=== PATIENT | female | born 1990 | race Caucasian/White ===

== ENCOUNTER 2023-12-16 15:54 | Inpatient (IN) | payer BC, OTHER ==
[~2023-12-16] VITALS: Ht 182.9 cm; Wt 76.2 kg
[2023-12-16] VITALS (7 sets, daily range): BP systolic 103–129; BP diastolic 58–69; PULSE 113–129; RESP 21–32; TEMP 97.2–97.7; O2SAT 97–99
[2023-12-16 16:41] LABS: Basophils # (auto) 0 10 ^3/uL (0-0.2); Basophils % (auto) 0.2 % (0.0-2.0); Eosinophils # (auto) 0 10 ^3/uL (0-0.8); Hematocrit 41.7 % (36.0-46.0); Hemoglobin 13.4 g/dL (12.2-16.2); Lymphocytes # (auto) 2.5 10 ^3/uL (0.4-5.4); Mean Corpuscular Hemoglobin 32.5 pg (28.0-32.0); Mean Corpuscular Volume 101.6 fL (80.0-100.0); Monocytes # (auto) 0.4 10 ^3/uL (0-1.3); Monocytes % (auto) 2.4 % (0.0-12.0); Neutrophils # (auto) 13.5 10 ^3/uL (1.6-8.6); Neutrophils % (auto) 82.4 % (37.0-80.0); Nucleated Red Blood Cells % 0.2 %; Platelet Count (auto) 231 10^3/uL (140-450); Red Blood Cells 4.11 10^6/uL (4.0-5.20); Red Cell Distribution Width 12.6 % (11.8-14.3); White Blood Cell 16.4 10^3/uL (4.4-10.8)
[2023-12-16 17:00] LABS: Base Excess -19.8 mmol/L (-2.0-3.0)
[2023-12-16] MEDS: MIDAZOLAM HCL 2MG/2ML 2ml VIAL (1mg/ml) IV ONE (17:00)
[2023-12-16 17:05] LABS: INR 1.06 (0.9-1.15); Partial Thromboplastin Time 30.7 SEC (24.5-34.5); Prothrombin Time 11.2 sec (9.3-11.8)
[2023-12-16 17:09] LABS: Alanine Aminotransferase 205 U/L (7-40); Alkaline Phosphatase 48 U/L (46-116); Anion Gap 30 (5-15); Aspartate Aminotransferase 157 U/L (13-40); BUN/Creatinine Ratio 11.4 (10.0-20.0); Blood Urea Nitrogen 13 mg/dL (9-23); Carbon Dioxide 11 mmol/L (20-31); Chloride 101 mmol/L (98-107); Glucose 369 mg/dL (74-106); Magnesium 2.6 mg/dL (1.6-2.6); Potassium 3.5 mmol/L (3.5-5.1); Sodium 142 mmol/L (136-145)
[2023-12-16 17:10] LABS: Albumin 4.3 g/dL (3.2-4.8); Creatine Kinase IFCC 123 U/L (34-145); Total Protein 6.3 g/dL (5.7-8.2)
[2023-12-16] MEDS: MIDAZOLAM DRIP 50 mg/50mL 50 ML IV ONE ×3 (17:15→19:44)
[2023-12-16] MEDS ORDERED: MIDAZOLAM DRIP 50 mg/50mL 50 ML IV SCH (17:15)
[2023-12-16 17:16] LABS: Urine Bacteria FEW /hpf (None Seen); Urine Blood Negative /uL (Negative); Urine Clarity Turbid (Clear); Urine Color Yellow (Yellow); Urine Mucus FEW (None Seen); Urine Protein, UAD 3+ (Negative); Urine Specific Gravity 1.031 (1.001-1.035); Urine Urobilinogen Normal (Negative); Urine WBC 1 /hpf (0 - 5); Urine pH 8.5 (5.0-9.0)
[2023-12-16 17:17] LABS: Lactic Acid w/Reflex 17.9 mmol/L (0.4-2.0)
[2023-12-16 17:23] LABS: Amphetamine Screen, Urine Neg (NEGATIVE); Barbiturate Scree,Urine Neg (NEGATIVE); Benzodiazephine Screen, Urine Neg (NEGATIVE); Cannabinoid Screen, Urine Pos (NEGATIVE); Cocaine Screen, Urine Neg (NEGATIVE); Opiate Scree,Urine Neg (NEGATIVE); Phencyclidine Screen, Urine Neg (NEGATIVE)
[2023-12-16] MEDS: HEPARIN SODIUM (PORCINE) 5000 UNITS/ML 1ML VIAL ONE (17:27)
[2023-12-16] MEDS: HEPARIN DRIP/D5W 100UNITS/ML 250 ML IV ONE (17:28)
[2023-12-16] MEDS ORDERED: HEPARIN DRIP/D5W 100UNITS/ML 250 ML IV SCH (17:30)
[2023-12-16] MEDS ORDERED: ONDANSETRON HCL 4 MG/2 ML VIAL IV PRN (17:30)
[2023-12-16] MEDS ORDERED: NITROGLYCERIN 0.4 MG SL TAB SL PRN (17:30)
[2023-12-16] MEDS ORDERED: MORPHINE SULFATE INJ 2 MG/ml SYRG IV PRN (17:30)
[2023-12-16 17:32] LABS: Triglycerides 97 mg/dL (< 150)
[2023-12-16] MEDS: HEPARIN SODIUM (PORCINE) 5000 UNITS/ML 1ML VIAL IV ONE (17:32)
[2023-12-16 17:33] LABS: LDL Cholesterol 87 mg/dL (< 100)
[2023-12-16] MEDS: PROPOFOL 100 ML IV SCH (17:33)
[2023-12-16] MEDS: PROPOFOL 100 ML IV ONE (17:33)
[2023-12-16 17:34] LABS: Cholesterol 139 mg/dL (< 200); HDL Cholesterol 48 mg/dL (40-59)
[2023-12-16] MEDS: PHENYLEPHRINE IV 250 ML IV ONE (17:45)
[2023-12-16] MEDS: InsuLIN REG 1unit/0.01ml Soln (100units/ml) IV ONE (17:51)
[2023-12-16] MEDS: SODIUM BICARB 8.4% 50Meq/50ml SYR Vial IV ONE ×2 (17:51→23:54)
[2023-12-16 18:20] LABS: Hemoglobin 13.5 g/dL (12.2-16.2); Mean Corpuscular Volume 98.4 fL (80.0-100.0)
[2023-12-16 18:22] LABS: Hematocrit 40.9 % (36.0-46.0); Mean Corpuscular Hemoglobin 32.5 pg (28.0-32.0); Mean Corpuscular Hgb Conc. 33.1 g/dL (32.0-36.0); Platelet Count (auto) 318 10^3/uL (140-450); Red Blood Cells 4.15 10^6/uL (4.0-5.20); Red Cell Distribution Width 12.2 % (11.8-14.3)
[2023-12-16 18:26] LABS: Alanine Aminotransferase 238 U/L (7-40); Albumin 4.5 g/dL (3.2-4.8); Alkaline Phosphatase 60 U/L (46-116); Anion Gap 18 (5-15); Aspartate Aminotransferase 200 U/L (13-40); BUN/Creatinine Ratio 12.9 (10.0-20.0); Bilirubin, Total 0.9 mg/dL (0.2-1.0); Blood Urea Nitrogen 13 mg/dL (9-23); Calcium 8.3 mg/dL (8.7-10.4); Carbon Dioxide 11 mmol/L (20-31); Chloride 110 mmol/L (98-107); Glucose 267 mg/dL (74-106); Potassium 4.1 mmol/L (3.5-5.1); Sodium 139 mmol/L (136-145); Total Protein 6.6 g/dL (5.7-8.2)
[2023-12-16 18:28] LABS: Acetaminophen < 2.0 UG/ML (10.0-20.0)
[2023-12-16 18:29] LABS: Salicylate < 3.0 mg/dL (-30)
[2023-12-16 18:30] LABS: White Blood Cell 39.9 10^3/uL (4.4-10.8)
[2023-12-16] MEDS ORDERED: DEXTROSE (50%) 50ML SYRG IV PRN (18:30)
[2023-12-16] MEDS ORDERED: fentaNYL Drip 2500mCg/250mlNS 250 ML IV SCH (18:30)
[2023-12-16 18:32] LABS: Basophils % (manual) 0 (0.0-2.0); Blast Cells 0; Eosinophils % (manual) 0 (0-7); Metamyelocytes % 0; Myelocytes % 0; Promyelocytes % 0; Reactive Lymphocytes 0
[2023-12-16] MEDS: IOHEXOL 350 MG/ML 100ML IJ ONE (18:40)
[2023-12-16] MEDS: fentaNYL Drip 2500mCg/250mlNS 250 ML IV SCH (19:00)
[2023-12-16 19:14] LABS: Band Neutrophils % (manual) 10; Lymphocytes % (manual) 4 (10.0-50.0); Monocytes % (manual) 2 (0-12); Platelet Estimate Adequate; RBC Morphology Normal
[2023-12-16] MEDS: SODIUM CHLORIDE 0.9% 1,000 ML IV ONE (19:30)
[2023-12-16] MEDS: MIDAZOLAM DRIP 50 mg/50mL 50 ML IV SCH (19:30)
[2023-12-16] MEDS: PIPERACILLIN-TAZOB 3.375GM 100 ML IV STA (19:50)
[2023-12-16] MEDS: ACCU-CHEK COMFORT CURVE STRIP VI SCH (20:00)
[2023-12-16] MEDS: InsuLIN REG 1unit/0.01ml Soln (100units/ml) SC SCH (20:00)
[2023-12-16] MEDS: IPRATROPIUM BROM 0.5 MG/2.5ML INH SOL NEB SCH (21:44)
[2023-12-16] MEDS: ALBUTEROL SULF 2.5 MG/0.5ML(0.5%) NEB SOLN NEB PRN (21:44)
[2023-12-16 22:08] LABS: Hematocrit 38.8 % (36.0-46.0); Hemoglobin 13.4 g/dL (12.2-16.2)
[2023-12-16 22:21] LABS: Base Excess -9.2 mmol/L (-2.0-3.0)
[2023-12-16] MEDS: SODIUM CHLORIDE 0.9% 1,000 ML IV SCH (23:50)
[2023-12-17] VITALS (113 sets, daily range): BP systolic 97–169; BP diastolic 58–107; PULSE 99–142; RESP 18–32; TEMP 97.5–100; O2SAT 97–100
[2023-12-17] MEDS: HEPARIN SODIUM (PORCINE) 5000 UNITS/ML 1ML VIAL SC SCH (05:43)
[2023-12-17 08:12] LABS: Base Excess -5.5 mmol/L (-2.0-3.0)
[2023-12-17] MEDS ORDERED: VANCOMYCIN PER PHARMACY 0 MG IV SCH ×2 (08:30→09:45)
[2023-12-17] MEDS ORDERED: HEPARIN DRIP/D5W 100UNITS/ML 250 ML IV SCH (09:30)
[2023-12-17 09:43] LABS: Basophils # (auto) 0 10 ^3/uL (0-0.2); Eosinophils # (auto) 0 10 ^3/uL (0-0.8); Hematocrit 37.7 % (36.0-46.0); Hemoglobin 12.5 g/dL (12.2-16.2); Lymphocytes # (auto) 0.9 10 ^3/uL (0.4-5.4); Mean Corpuscular Hemoglobin 32.1 pg (28.0-32.0); Mean Corpuscular Hgb Conc. 33.2 g/dL (32.0-36.0); Mean Corpuscular Volume 96.8 fL (80.0-100.0); Monocytes # (auto) 0.7 10 ^3/uL (0-1.3); Neutrophils # (auto) 22.2 10 ^3/uL (1.6-8.6); Nucleated Red Blood Cells % 0.1 %; Platelet Count (auto) 190 10^3/uL (140-450); Red Cell Distribution Width 12.2 % (11.8-14.3); White Blood Cell 23.9 10^3/uL (4.4-10.8)
[2023-12-17 09:51] LABS: INR 1.03 (0.9-1.15); Partial Thromboplastin Time 25.2 SEC (24.5-34.5); Prothrombin Time 10.9 sec (9.3-11.8)
[2023-12-17 09:53] LABS: Alanine Aminotransferase 176 U/L (7-40); Albumin 3.7 g/dL (3.2-4.8); Alkaline Phosphatase 46 U/L (46-116); Anion Gap 8 (5-15); Aspartate Aminotransferase 193 U/L (13-40); BUN/Creatinine Ratio 21.2 (10.0-20.0); Bilirubin, Total 0.4 mg/dL (0.2-1.0); Blood Urea Nitrogen 11 mg/dL (9-23); Carbon Dioxide 20 mmol/L (20-31); Chloride 115 mmol/L (98-107); Glucose 118 mg/dL (74-106); Potassium 3.9 mmol/L (3.5-5.1); Sodium 143 mmol/L (136-145); Total Protein 5.5 g/dL (5.7-8.2)
[2023-12-17] MEDS ORDERED: VANCOMYCIN 1,250 MG in SODIUM CHL 0.9% 250 ML IV SCH (10:00)
[2023-12-17] MEDS ORDERED: VANCOMYCIN 1GM/200ML PREMIX 250 ML IV SCH (10:00)
[2023-12-17] MEDS ORDERED: VANCOMYCIN 1,250 MG in D5W 5% 250 ML IV SCH (10:00)
[2023-12-17] MEDS: HEPARIN DRIP/D5W 100UNITS/ML 250 ML IV SCH ×2 (10:25→18:01)
[2023-12-17] MEDS ORDERED: VANCOMYCIN 1,000 MG in D5W 5% 250 ML IV SCH (11:00)
[2023-12-17] MEDS: SODIUM CHLORIDE 0.9% 1,000 ML IV SCH (11:57)
[2023-12-17] MEDS: cefTRIAXone 2GM/50ML D5W 50 ML IV SCH (12:14)
[2023-12-17] MEDS: FREE WATER GT SCH (12:42)
[2023-12-17] MEDS ORDERED: MAGNESIUM SULFATE 1GM/100ML 100 ML IV ONE (15:00)
[2023-12-17] MEDS: METOPROLOL TARTRATE 1MG/1ML-5ML VIAL IV ONE ×2 (15:26→16:44)
[2023-12-17] MEDS: MAGNESIUM SULFATE 1GM/100ML 100 ML IV ONE (15:27)
[2023-12-17] MEDS ORDERED: ACETAMINOPHEN 650 mg PER 20.3 mL UD GT PRN (16:30)
[2023-12-17] MEDS: Jevity 1.2 Cal/Fiber 1 Liter GT SCH (16:45)
[2023-12-17 16:54] LABS: INR 1.05 (0.9-1.15); Partial Thromboplastin Time 39.8 SEC (24.5-34.5); Prothrombin Time 11.1 sec (9.3-11.8)
[2023-12-17 18:46] LABS: Chloride 113 mmol/L (98-107); Potassium 3.9 mmol/L (3.5-5.1); Sodium 141 mmol/L (136-145)
[2023-12-17 18:47] LABS: Anion Gap 9 (5-15); Calcium 9.2 mg/dL (8.7-10.4); Carbon Dioxide 19 mmol/L (20-31)
[2023-12-17 18:52] LABS: Glucose 121 mg/dL (74-106)
[2023-12-17 18:54] LABS: BUN/Creatinine Ratio 8.5 (10.0-20.0); Blood Urea Nitrogen < 5 mg/dL (9-23)
[2023-12-17] MEDS: IPRATROPIUM BROM 0.5 MG/2.5ML INH SOL NEB SCH (19:29)
[2023-12-17] MEDS: LEVALBUTEROL HCL 1.25 MG/3 ML NEB NEB SCH (19:29)
[2023-12-18] VITALS (117 sets, daily range): BP systolic 75–160; BP diastolic 41–113; PULSE 84–141; RESP 21–22; TEMP 96.8–99.1; O2SAT 95–100
[2023-12-18 01:12] LABS: INR 1.06 (0.9-1.15); Partial Thromboplastin Time 30.4 SEC (24.5-34.5); Prothrombin Time 11.2 sec (9.3-11.8)
[2023-12-18 04:53] LABS: Anion Gap 9 (5-15); Carbon Dioxide 20 mmol/L (20-31); Chloride 118 mmol/L (98-107); Potassium 4.1 mmol/L (3.5-5.1)
[2023-12-18 04:54] LABS: Calcium 9.5 mg/dL (8.7-10.4)
[2023-12-18 04:58] LABS: Glucose 115 mg/dL (74-106)
[2023-12-18 05:10] LABS: BUN/Creatinine Ratio 9.4 (10.0-20.0); Blood Urea Nitrogen < 5 mg/dL (9-23); Sodium 147 mmol/L (136-145)
[2023-12-18 05:36] LABS: Basophils # (auto) 0 10 ^3/uL (0-0.2); Eosinophils # (auto) 0 10 ^3/uL (0-0.8); Hematocrit 36.3 % (36.0-46.0); Hemoglobin 12.5 g/dL (12.2-16.2); Lymphocytes # (auto) 0.8 10 ^3/uL (0.4-5.4); Lymphocytes % (auto) 3.8 % (10.0-50.0); Mean Corpuscular Hemoglobin 33.2 pg (28.0-32.0); Mean Corpuscular Hgb Conc. 34.4 g/dL (32.0-36.0); Mean Corpuscular Volume 96.4 fL (80.0-100.0); Monocytes # (auto) 0.7 10 ^3/uL (0-1.3); Monocytes % (auto) 3.4 % (0.0-12.0); Neutrophils # (auto) 19.2 10 ^3/uL (1.6-8.6); Neutrophils % (auto) 92.8 % (37.0-80.0); Platelet Count (auto) 195 10^3/uL (140-450); Red Blood Cells 3.77 10^6/uL (4.0-5.20); Red Cell Distribution Width 12.1 % (11.8-14.3); White Blood Cell 20.7 10^3/uL (4.4-10.8)
[2023-12-18] MEDS: METOPROLOL TARTRATE 1MG/1ML-5ML VIAL IV PRN (05:59)
[2023-12-18 06:33] LABS: Base Excess -3.8 mmol/L (-2.0-3.0)
[2023-12-18 08:06] LABS: Free Thyroxine Index 1.5 (1.2-4.9); Thyroxine (T4) 5.7 ug/dL (4.5-12.0)
[2023-12-18] MEDS: LABETALOL INJECTION 250 MG in SODIUM CHL 0.9% 200 ML IV SCH (08:43)
[2023-12-18] MEDS: SODIUM CHLORIDE 0.9% 1,000 ML IV SCH (08:46)
[2023-12-18] MEDS: PANTOPRAZOLE 40 MG/10 ML VIAL INJ IV SCH (10:18)
[2023-12-18] MEDS ORDERED: VANCOMYCIN PER PHARMACY 0 MG IV SCH (13:15)
[2023-12-18 14:02] LABS: Urine Bacteria None Seen /hpf (None Seen)
[2023-12-18 14:24] LABS: Urine Blood 1+ /uL (Negative); Urine Clarity Clear (Clear); Urine Protein, UAD Negative (Negative); Urine Specific Gravity 1.005 (1.001-1.035); Urine Urobilinogen Normal (Negative); Urine WBC 2 /hpf (0 - 5)
[2023-12-18 14:25] LABS: Urine Color Light-Yellow (Yellow)
[2023-12-18] MEDS: VANCOMYCIN 1,000 MG in D5W 5% 250 ML IV SCH (14:34)
[2023-12-18] MEDS: PIPERACILLIN-TAZOB 3.375GM 100 ML IV SCH (17:21)
[2023-12-18] MEDS: Jevity 1.2 Cal/Fiber 1 Liter GT SCH (17:27)
[2023-12-18] MEDS ORDERED: LABETALOL INJECTION 250 MG in SODIUM CHL 0.9% 200 ML IV ONE (19:45)
[2023-12-18] MEDS: LABETALOL INJECTION 250 MG in SODIUM CHL 0.9% 200 ML IV ONE (21:42)
[2023-12-18] MEDS: HEPARIN SODIUM (PORCINE) 5000 UNITS/ML 1ML VIAL SC SCH (22:02)
[2023-12-19] VITALS (115 sets, daily range): BP systolic 70–155; BP diastolic 37–112; PULSE 83–110; RESP 21–24; TEMP 96.4–99; O2SAT 93–100
[2023-12-19] MEDS ORDERED: LABETALOL INJECTION 250 MG in SODIUM CHL 0.9% 200 ML IV SCH (00:45)
[2023-12-19] MEDS ORDERED: NOREPINEPHRINE 8 MG/250ML KIT 250 ML IV SCH ×3 (02:45→06:00)
[2023-12-19] MEDS: NOREPINEPHRINE 8 MG/250ML KIT 250 ML IV ONE (02:46)
[2023-12-19 04:29] LABS: Basophils # (auto) 0 10 ^3/uL (0-0.2); Basophils % (auto) 0.1 % (0.0-2.0); Eosinophils # (auto) 0 10 ^3/uL (0-0.8); Hematocrit 35.6 % (36.0-46.0); Lymphocytes # (auto) 0.9 10 ^3/uL (0.4-5.4); Lymphocytes % (auto) 5.8 % (10.0-50.0); Mean Corpuscular Hemoglobin 32.6 pg (28.0-32.0); Mean Corpuscular Hgb Conc. 33.7 g/dL (32.0-36.0); Mean Corpuscular Volume 96.7 fL (80.0-100.0); Monocytes # (auto) 0.5 10 ^3/uL (0-1.3); Monocytes % (auto) 3.6 % (0.0-12.0); Neutrophils # (auto) 13.7 10 ^3/uL (1.6-8.6); Neutrophils % (auto) 90.5 % (37.0-80.0); Platelet Count (auto) 183 10^3/uL (140-450); Red Blood Cells 3.68 10^6/uL (4.0-5.20); Red Cell Distribution Width 12.6 % (11.8-14.3); White Blood Cell 15.2 10^3/uL (4.4-10.8)
[2023-12-19 04:46] LABS: Potassium 3.5 mmol/L (3.5-5.1)
[2023-12-19 04:47] LABS: Anion Gap 9 (5-15); Carbon Dioxide 23 mmol/L (20-31)
[2023-12-19 04:48] LABS: Calcium 9.9 mg/dL (8.7-10.4)
[2023-12-19 04:52] LABS: Blood Urea Nitrogen 8 mg/dL (9-23); Glucose 120 mg/dL (74-106)
[2023-12-19 04:54] LABS: Chloride 128 mmol/L (98-107); Sodium 160 mmol/L (136-145)
[2023-12-19] MEDS: NOREPINEPHRINE 8 MG/250ML KIT 250 ML IV SCH ×2 (05:36→06:15)
[2023-12-19] MEDS: InsuLIN REG 1unit/0.01ml Soln (100units/ml) SC SCH (06:00)
[2023-12-19] MEDS: ACCU-CHEK COMFORT CURVE STRIP VI SCH (06:13)
[2023-12-19] MEDS: PANTOPRAZOLE 40 MG/10 ML VIAL INJ IV SCH (10:24)
[2023-12-19] MEDS ORDERED: VANCOMYCIN 1,250 MG in D5W 5% 250 ML IV SCH (10:30)
[2023-12-19] MEDS: VANCOMYCIN 1,250 MG in D5W 5% 250 ML IV SCH (11:00)
[2023-12-19] MEDS: D5W 5% 1,000 ML IV SCH (13:50)
[2023-12-19 14:44] LABS: Chloride 126 mmol/L (98-107); Potassium 3.2 mmol/L (3.5-5.1); Sodium 158 mmol/L (136-145)
[2023-12-19 14:45] LABS: Anion Gap 8 (5-15); Calcium 9.7 mg/dL (8.7-10.4); Carbon Dioxide 24 mmol/L (20-31)
[2023-12-19 14:50] LABS: BUN/Creatinine Ratio 12.7 (10.0-20.0); Blood Urea Nitrogen 10 mg/dL (9-23); Glucose 188 mg/dL (74-106)
[2023-12-19] MEDS: POTASSIUM CHL 20MEQ/100ML 100 ML IV SCH (19:29)
[2023-12-20] VITALS (113 sets, daily range): BP systolic 66–156; BP diastolic 32–106; PULSE 89–129; RESP 18–27; TEMP 96.3–99.9; O2SAT 91–99
[2023-12-20 04:14] LABS: Basophils # (auto) 0 10 ^3/uL (0-0.2); Basophils % (auto) 0.2 % (0.0-2.0); Eosinophils # (auto) 0 10 ^3/uL (0-0.8); Eosinophils % (auto) 0.1 % (0.0-7.0); Hematocrit 34.3 % (36.0-46.0); Hemoglobin 11.7 g/dL (12.2-16.2); Lymphocytes % (auto) 8.3 % (10.0-50.0); Mean Corpuscular Hemoglobin 33.1 pg (28.0-32.0); Mean Corpuscular Hgb Conc. 34.3 g/dL (32.0-36.0); Mean Corpuscular Volume 96.6 fL (80.0-100.0); Monocytes # (auto) 0.6 10 ^3/uL (0-1.3); Monocytes % (auto) 5.2 % (0.0-12.0); Neutrophils # (auto) 10.3 10 ^3/uL (1.6-8.6); Neutrophils % (auto) 86.2 % (37.0-80.0); Platelet Count (auto) 182 10^3/uL (140-450); Red Blood Cells 3.55 10^6/uL (4.0-5.20); Red Cell Distribution Width 12.9 % (11.8-14.3)
[2023-12-20 04:26] LABS: Anion Gap 11 (5-15); Carbon Dioxide 24 mmol/L (20-31); Chloride 134 mmol/L (98-107); Potassium 3.5 mmol/L (3.5-5.1)
[2023-12-20 04:28] LABS: Calcium 9.7 mg/dL (8.7-10.4)
[2023-12-20 04:32] LABS: Glucose 123 mg/dL (74-106)
[2023-12-20 04:33] LABS: BUN/Creatinine Ratio 9.5 (10.0-20.0); Blood Urea Nitrogen 8 mg/dL (9-23)
[2023-12-20 04:43] LABS: Sodium 169 mmol/L (136-145)
[2023-12-20] MEDS: FREE WATER GT ONE (05:32)
[2023-12-20] MEDS: D5W 5% 1,000 ML IV SCH ×2 (07:00→16:15)
[2023-12-20 07:14] LABS: Anion Gap 11 (5-15); Carbon Dioxide 24 mmol/L (20-31); Chloride 135 mmol/L (98-107); Potassium 3.5 mmol/L (3.5-5.1)
[2023-12-20 07:16] LABS: Calcium 9.9 mg/dL (8.7-10.4)
[2023-12-20 07:20] LABS: BUN/Creatinine Ratio 9.5 (10.0-20.0); Blood Urea Nitrogen 8 mg/dL (9-23); Glucose 125 mg/dL (74-106)
[2023-12-20 07:23] LABS: Sodium 170 mmol/L (136-145)
[2023-12-20 08:24] LABS: Base Excess -2.4 mmol/L (-2.0-3.0)
[2023-12-20] MEDS: DESMOPRESSIN ACET 4 MCG/1 ML AMPULE IV SCH (09:52)
[2023-12-20] MEDS: FREE WATER GT SCH ×2 (09:55→21:40)
[2023-12-20] MEDS: D5W 5% 500 ML IV ONE (10:29)
[2023-12-20 12:40] LABS: Chloride 130 mmol/L (98-107); Potassium 3.3 mmol/L (3.5-5.1)
[2023-12-20 12:41] LABS: Anion Gap 8 (5-15); Carbon Dioxide 24 mmol/L (20-31)
[2023-12-20 12:42] LABS: Calcium 9.2 mg/dL (8.7-10.4)
[2023-12-20 12:46] LABS: BUN/Creatinine Ratio 9.4 (10.0-20.0); Blood Urea Nitrogen 10 mg/dL (9-23); Glucose 224 mg/dL (74-106)
[2023-12-20 12:48] LABS: Sodium 162 mmol/L (136-145)
[2023-12-20] MEDS: POTASSIUM CHL 20MEQ/100ML 100 ML IV SCH (13:43)
[2023-12-20 18:07] LABS: Chloride 126 mmol/L (98-107); Potassium 3.9 mmol/L (3.5-5.1)
[2023-12-20 18:08] LABS: Anion Gap 6 (5-15); Calcium 9.3 mg/dL (8.7-10.4); Carbon Dioxide 24 mmol/L (20-31)
[2023-12-20 18:12] LABS: Sodium 156 mmol/L (136-145)
[2023-12-20 18:13] LABS: BUN/Creatinine Ratio 11.1 (10.0-20.0); Blood Urea Nitrogen 14 mg/dL (9-23); Glucose 114 mg/dL (74-106)
[2023-12-20] MEDS: SOD CHL 0.45% 1,000 ML IV SCH (18:40)
[2023-12-21] VITALS (117 sets, daily range): BP systolic 64–192; BP diastolic 35–112; PULSE 81–132; RESP 21–26; TEMP 96.1–99.7; O2SAT 88–100
[2023-12-21 01:28] LABS: Chloride 124 mmol/L (98-107); Potassium 3.3 mmol/L (3.5-5.1); Sodium 154 mmol/L (136-145)
[2023-12-21 01:29] LABS: Anion Gap 8 (5-15); Carbon Dioxide 22 mmol/L (20-31)
[2023-12-21 01:30] LABS: Calcium 9.1 mg/dL (8.7-10.4)
[2023-12-21 01:34] LABS: Glucose 91 mg/dL (74-106)
[2023-12-21 01:35] LABS: BUN/Creatinine Ratio 8.6 (10.0-20.0); Blood Urea Nitrogen 17 mg/dL (9-23)
[2023-12-21] MEDS: POTASSIUM CHL 20MEQ/100ML 100 ML IV ONE (02:40)
[2023-12-21] MEDS: ETOMIDATE (2MG/ML) 20ML VIAL IV ONE (03:28)
[2023-12-21] MEDS: SUCCINYLCHOLINE CHLORIDE 20 MG/ML 10ML VIAL IV ONE (03:29)
[2023-12-21 07:33] LABS: Chloride 123 mmol/L (98-107); Potassium 3.9 mmol/L (3.5-5.1); Sodium 152 mmol/L (136-145)
[2023-12-21 07:34] LABS: Anion Gap 8 (5-15); Calcium 8.9 mg/dL (8.7-10.4); Carbon Dioxide 21 mmol/L (20-31)
[2023-12-21 07:38] LABS: Base Excess -6.6 mmol/L (-2.0-3.0)
[2023-12-21 07:39] LABS: BUN/Creatinine Ratio 8.2 (10.0-20.0); Blood Urea Nitrogen 20 mg/dL (9-23); Glucose 76 mg/dL (74-106)
[2023-12-21] MEDS: SOD CHL 0.45% 1,000 ML IV SCH (08:00)
[2023-12-21] MEDS: PHENYLEPHRINE IV 250 ML IV ONE (08:05)
[2023-12-21] MEDS: SODIUM BICARB 8.4% 50Meq/50ml SYR Vial IV ONE (09:51)
[2023-12-21] MEDS: ENOXAPARIN SOD 40 MG/0.4 ML SYRINGE SC SCH (09:51)
[2023-12-21 10:02] LABS: Basophils # (auto) 0 10 ^3/uL (0-0.2); Basophils % (auto) 0.1 % (0.0-2.0); Eosinophils # (auto) 0.3 10 ^3/uL (0-0.8); Eosinophils % (auto) 2.6 % (0.0-7.0); Hematocrit 33.1 % (36.0-46.0); Hemoglobin 11.2 g/dL (12.2-16.2); Lymphocytes # (auto) 1.5 10 ^3/uL (0.4-5.4); Lymphocytes % (auto) 13.3 % (10.0-50.0); Mean Corpuscular Hemoglobin 33.4 pg (28.0-32.0); Mean Corpuscular Hgb Conc. 33.7 g/dL (32.0-36.0); Mean Corpuscular Volume 99.1 fL (80.0-100.0); Monocytes # (auto) 0.5 10 ^3/uL (0-1.3); Monocytes % (auto) 4.4 % (0.0-12.0); Neutrophils # (auto) 9.1 10 ^3/uL (1.6-8.6); Neutrophils % (auto) 79.6 % (37.0-80.0); Nucleated Red Blood Cells % 0.1 %; Platelet Count (auto) 132 10^3/uL (140-450); Red Blood Cells 3.34 10^6/uL (4.0-5.20); Red Cell Distribution Width 13.1 % (11.8-14.3); White Blood Cell 11.4 10^3/uL (4.4-10.8)
[2023-12-21] MEDS: PHENYLEPHRINE IV 250 ML IV SCH (10:30)
[2023-12-21 12:05] LABS: Chloride 121 mmol/L (98-107); Potassium 4.2 mmol/L (3.5-5.1); Sodium 153 mmol/L (136-145)
[2023-12-21 12:06] LABS: Anion Gap 8 (5-15); Calcium 9.1 mg/dL (8.7-10.4); Carbon Dioxide 24 mmol/L (20-31)
[2023-12-21 12:11] LABS: BUN/Creatinine Ratio 8.7 (10.0-20.0); Blood Urea Nitrogen 24 mg/dL (9-23); Glucose 71 mg/dL (74-106)
[2023-12-21] MEDS: VASOPRESSIN 20 UNITS in SODIUM CHL 0.9% 99 ML IV SCH (13:15)
[2023-12-21] MEDS: DEXTROSE (50%) 50ML SYRG IV PRN (17:38)
[2023-12-21 18:16] LABS: Chloride 121 mmol/L (98-107); Potassium 4.1 mmol/L (3.5-5.1); Sodium 153 mmol/L (136-145)
[2023-12-21 18:17] LABS: Anion Gap 11 (5-15); Carbon Dioxide 21 mmol/L (20-31)
[2023-12-21 18:18] LABS: Calcium 8.8 mg/dL (8.7-10.4)
[2023-12-21 18:22] LABS: Glucose 60 mg/dL (74-106)
[2023-12-21 18:23] LABS: BUN/Creatinine Ratio 8.4 (10.0-20.0); Blood Urea Nitrogen 27 mg/dL (9-23)
[2023-12-22] VITALS (106 sets, daily range): BP systolic 93–128; BP diastolic 51–87; PULSE 83–121; RESP 0–26; TEMP 97.7–99.1; O2SAT 23–99
[2023-12-22 00:53] LABS: Chloride 123 mmol/L (98-107); Potassium 5.2 mmol/L (3.5-5.1); Sodium 150 mmol/L (136-145)
[2023-12-22 00:54] LABS: Anion Gap 9 (5-15); Calcium 8.4 mg/dL (8.7-10.4); Carbon Dioxide 18 mmol/L (20-31)
[2023-12-22 00:59] LABS: Glucose 75 mg/dL (74-106)
[2023-12-22 01:00] LABS: BUN/Creatinine Ratio 6.8 (10.0-20.0); Blood Urea Nitrogen 23 mg/dL (9-23)
[2023-12-22] MEDS ORDERED: SODIUM ZIRCONIUM CYCL 10 GM PAK GT ONE (02:45)
[2023-12-22] MEDS: SODIUM ZIRCONIUM CYCL 10 GM PAK GT ONE (02:52)
[2023-12-22 07:18] LABS: Chloride 120 mmol/L (98-107); Potassium 4.5 mmol/L (3.5-5.1); Sodium 151 mmol/L (136-145)
[2023-12-22 07:19] LABS: Anion Gap 11 (5-15); Calcium 8.6 mg/dL (8.7-10.4); Carbon Dioxide 20 mmol/L (20-31)
[2023-12-22 07:24] LABS: Glucose 73 mg/dL (74-106)
[2023-12-22 07:25] LABS: Blood Urea Nitrogen 34 mg/dL (9-23)
[2023-12-22 08:15] LABS: Base Excess -11.4 mmol/L (-2.0-3.0)
[2023-12-22] MEDS: SODIUM BICARB 50mEq/50ml Vial 100 ML in D5W 5% 1,000 ML IV SCH (09:59)
[2023-12-22] MEDS: FREE WATER GT SCH (11:17)
[2023-12-22 14:42] LABS: Chloride 122 mmol/L (98-107); Potassium 4.1 mmol/L (3.5-5.1); Sodium 153 mmol/L (136-145)
[2023-12-22 14:43] LABS: Anion Gap 10 (5-15); Carbon Dioxide 21 mmol/L (20-31)
[2023-12-22 14:44] LABS: Calcium 8.5 mg/dL (8.7-10.4)
[2023-12-22 14:48] LABS: BUN/Creatinine Ratio 10.4 (10.0-20.0); Blood Urea Nitrogen 35 mg/dL (9-23); Glucose 101 mg/dL (74-106)
[2023-12-22] MEDS ORDERED: LORazepam 2MG/ML-1ML VIAL IV PRN (15:00)
[2023-12-22] MEDS: MORPHINE SULFATE INJ 2 MG/ml SYRG IV PRN (21:30)
[2023-12-23] MEDS ORDERED: ENOXAPARIN SOD 30 MG/0.3 ML SYRINGE SC SCH (10:00)
== END 2023-12-22 21:59 | DRG 831 ==
LOC: ER 15:54 → EDBD 15:54 → TELE 17:27 → ICU WEST 22:58
PROVIDERS: ADMIT Registered Nurse General Practice; ATTEND Nurse Practitioner Acute Care
PROC: 5A12012 Performance of Cardiac Output, Single, Manual (ICD-10-PCS; principal; 2023-12-16)
PROC: 0BH18EZ Insertion of Endotracheal Airway into Trachea, Via Natural or Artificial Opening Endoscopic (ICD-10-PCS; 2023-12-16)
PROC: 5A1955Z Respiratory Ventilation, Greater than 96 Consecutive Hours (ICD-10-PCS; 2023-12-16)
PROC: 02HV33Z Insertion of Infusion Device into Superior Vena Cava, Percutaneous Approach (ICD-10-PCS; 2023-12-19)
PROC: B548ZZA Ultrasonography of Superior Vena Cava, Guidance (ICD-10-PCS; 2023-12-19)
DX: O99.411 Diseases of the circulatory system complicating pregnancy, first trimester (principal); A41.9 Sepsis, unspecified organism; J96.01 Acute respiratory failure with hypoxia; G93.41 Metabolic encephalopathy; I21.A1 Myocardial infarction type 2; G93.6 Cerebral edema; O88.211 Thromboembolism in pregnancy, first trimester; I26.99 Other pulmonary embolism without acute cor pulmonale; O23.41 Unspecified infection of urinary tract in pregnancy, first trimester; O26.831 Pregnancy related renal disease, first trimester; O16.1 Unspecified maternal hypertension, first trimester; G93.1 Anoxic brain damage, not elsewhere classified; Z99.11 Dependence on respirator [ventilator] status; N17.9 Acute kidney failure, unspecified; O99.321 Drug use complicating pregnancy, first trimester; Z16.24 Resistance to multiple antibiotics; O98.811 Other maternal infectious and parasitic diseases complicating pregnancy, first trimester; F12.10 Cannabis abuse, uncomplicated; O99.351 Diseases of the nervous system complicating pregnancy, first trimester; I46.9 Cardiac arrest, cause unspecified; R56.9 Unspecified convulsions; R74.01 Elevation of levels of liver transaminase levels; I50.810 Right heart failure, unspecified; I48.91 Unspecified atrial fibrillation; O99.511 Diseases of the respiratory system complicating pregnancy, first trimester; F17.200 Nicotine dependence, unspecified, uncomplicated; O21.1 Hyperemesis gravidarum with metabolic disturbance; O99.331 Smoking (tobacco) complicating pregnancy, first trimester; F41.9 Anxiety disorder, unspecified; O99.281 Endocrine, nutritional and metabolic diseases complicating pregnancy, first trimester; I11.0 Hypertensive heart disease with heart failure; O99.341 Other mental disorders complicating pregnancy, first trimester; F32.A Depression, unspecified; Z82.49 Family history of ischemic heart disease and other diseases of the circulatory system; Z83.3 Family history of diabetes mellitus
CPT/HCPCS: 36415; 36600; 70450; 70545; 70551; 71045; 71275; 72125; 74177; 76801; 76856; 80048; 80053; 80061; 80202; 80307; 80329; 81001; 82010; 82140; 82550; 82805; 82962; 83036; 83605; 83735; 83880; 83930; 83935; 84443; 84484; 84702; 85007; 85014; 85018; 85025; 85027; 85379; 85610; 85730; 87040; 87070; 87077; 87086; 87186; 87205; 92950; 93005; 93306; 93970; 94002; 94003; 94640; 95819; 96365; 96375; G0378; J0330; J1815; J2250; J2470; J2543; J2704; J3480; J7060